=== PATIENT | male | born 1970 ===

== ENCOUNTER 2018-10-08 06:12 | Emergency (ER) | payer SELFPAY ==
[~2018-10-08] VITALS: Ht 170.2 cm; Wt 67.0 kg
[2018-10-08 06:16] VITALS: BP 139/81; PULSE 91; RESP 20; Ht 170.2 cm; Wt 67.0 kg
[2018-10-08] MEDS ORDERED: BELLADONNA/PHENOBARBITAL TAB PO STA (06:34)
[2018-10-08] MEDS ORDERED: FAMOTIDINE 20 MG TAB PO STA (06:34)
[2018-10-08] MEDS ORDERED: LIDOCAINE/MYLANTA 40 ML BTL PO STA (06:34)
--- NOTE | 2018-10-08 06:42 | ERD ---
ER Documentation Chief Complaint Chief Complaint ap x 5 days denies vomiting HPI During the patient's encounter translation services were utilized Language: [Tajik] Source: [video] 47-year-old male with no significant past medical history presents to the emergency room with several weeks of fullness sensation after eating. The patient does have a history of esophagitis. He is not taking any PPI or H2 elmer at this time. He states that every time he eats he feels full quickly. He also notes some mild epigastric burning discomfort. He denies any weight changes, mild nausea but no vomiting. One episode of looser stool but no constipation. He denies any recent travel sick contacts or antibiotics. No chest pain or chest pressure or exertional symptoms. ROS All systems reviewed and are negative except as per history of present illness. Medications Home Meds Active Scripts Omeprazole* (Omeprazole*) 20 Mg Capsule.dr, 20 MG PO DAILY for 30 Days Prov:RUPINDER MONTANA MD 10/08/18 Allergies Allergies: Coded Allergies: No Known Allergy (Unverified , 10/08/18) FmHx Family History: No diabetes Physical Exam Vitals Vital Signs Date Temp Pulse Resp B/P (MAP) Pulse Ox O2 O2 Flow FiO2 Time Delivery Rate 10/08/18 98.7 91 20 139/81 98 06:16 (100) Physical Exam General: Well developed, well nourished, no acute distress Head: Normocephalic, atraumatic. Eyes: Pupils equally reactive, EOM intact ENT: Moist mucous membranes Neck: Supple, no lymphadenopathy Respiratory: Lungs clear bilaterally, no distress Cardiovascular: RRR, no murmurs, rubs, or gallops Abdominal: Soft, very mild epigastric abdominal tenderness, negative Ambrocio sign, no tenderness to McBurney's point, non-distended, no peritoneal signs : Deferred MSK: No edema, no unilateral swelling, 5/5 strength Neurologic: Alert and oriented, moving all extremities, normal speech, no focal weakness, no cerebellar signs Skin: No rash Psych: Normal mood Result Diagram: 10/08/1837 10/08/1837 Results 24 hrs Laboratory Tests Test 10/08/18 06:37 White Blood Count 6.5 10^3/ul Red Blood Count 4.63 10^6/ul Hemoglobin 14.6 g/dl Hematocrit 41.8 % Mean Corpuscular Volume 90.3 fl Mean Corpuscular Hemoglobin 31.5 pg Mean Corpuscular Hemoglobin Concent 34.9 g/dl Red Cell Distribution Width 12.8 % Platelet Count 185 10^3/UL Mean Platelet Volume 11.0 fl Immature Granulocytes % 0.300 % Neutrophils % 43.1 % Lymphocytes % 47.4 % Monocytes % 7.6 % Eosinophils % 1.1 % Basophils % 0.5 % Nucleated Red Blood Cells % 0.0 /100WBC Immature Granulocytes # 0.020 10^3/ul Neutrophils # 2.8 10^3/ul Lymphocytes # 3.1 10^3/ul Monocytes # 0.5 10^3/ul Eosinophils # 0.1 10^3/ul Basophils # 0.0 10^3/ul Nucleated Red Blood Cells # 0.0 10^3/ul Sodium Level 141 mmol/L Potassium Level 3.4 mmol/L Chloride Level 101 mmol/L Carbon Dioxide Level 30 mmol/L Anion Gap 10 Blood Urea Nitrogen 13 mg/dl Creatinine 0.72 mg/dl Est Glomerular Filtrat Rate mL/min > 60 mL/min Glucose Level 113 mg/dl Calcium Level 9.2 mg/dl Total Bilirubin 1.7 mg/dl Direct Bilirubin 0.00 mg/dl Indirect Bilirubin 1.7 mg/dl Aspartate Amino Transf (AST/SGOT) 39 IU/L Alanine Aminotransferase (ALT/SGPT) 22 IU/L Alkaline Phosphatase 80 IU/L Total Protein 8.0 g/dl Albumin 4.6 g/dl Globulin 3.40 g/dl Albumin/Globulin Ratio 1.35 Lipase 82 U/L Current Medications Medications Dose Sig/Luke Start Time Status Last (Trade) Ordered Route PRN Stop Time Admin Dose Reason Admin Famotidine 20 mg ONCE STAT 10/08/18 DC 10/08/18 (Pepcid) PO 06:34 10/08/18 06:53 06:36 40 ml ONCE STAT 10/08/18 DC 10/08/18 Miscellaneous PO 06:34 10/08/18 06:53 Medication 06:36 (Gi Cocktail (2)) Belladonna/ 2 tab ONCE STAT 10/08/18 DC 10/08/18 Phenobarbital PO 06:34 10/08/18 06:52 () 06:36 Procedures/MDM LAB INTERPRETATION: I reviewed the laboratory testing and it shows no evidence of acute process MEDICAL DECISION MAKING: The patient's description and exam are most consistent with GI process such as esophagitis, gastroesophageal reflux disease versus gastritis or peptic ulcer disease. Patient has an otherwise benign abdominal exam without signs or sy mptoms concerning for acute intra-abdominal process such as bowel obstruction, mass, acute cholecystitis or acute appendicitis. I do not believe that advanced imaging is necessary at this time. The patient needs to follow-up with his GI specialist for repeat endoscopy and colonoscopy as needed. Patient may benefit from initiation of a PPI for 30 days to see if this improves any symptoms. ER COURSE: * GI cocktail provided * Laboratory testing is unrevealing. At this point the patient can be safely discharged with outpatient follow-up. Local resources were provided for the patient. CONSULTATION: None DISPOSITION PLAN: The patient does not have an identifiable emergent medical condition that warrants inpatient hospitalization at this time. The patient is deemed safe for discharge with outpatient follow-up. We discussed follow up with the patient's primary care doctor within 24 to 48 hours as needed. We also discussed return to the emergency room for worsening symptoms or worsening condition. Outpatient referral: Gastroenterology Discharge Medications: Prilosec Departure Diagnosis: Primary Impression: Abdominal pain Abdominal location: epigastric Qualified Codes: R10.13 - Epigastric pain Additional Impression: Dyspepsia Condition: Stable RUPINDER MONTANA MD Oct 08, 2018 06:42
[2018-10-08] MEDS ORDERED: OMEP20CA16 PO (07:21)
== END 2018-10-08 08:17 | disposition home or self-care (01) ==
LOC: E/R 06:12
DX: R10.13 Epigastric pain (principal); R40.2142 Coma scale, eyes open, spontaneous, at arrival to emergency department; R40.2362 Coma scale, best motor response, obeys commands, at arrival to emergency department; R40.2252 Coma scale, best verbal response, oriented, at arrival to emergency department
CPT/HCPCS: 36415; 80053; 83690; 85025; 99283